=== PATIENT | female | born 1980 | race Two or more races ===

== ENCOUNTER 2018-07-28 05:45 | Day surgery (SDC) | payer OTHER ==
[2018-07-28] MEDS ORDERED: COLACE100 MG PO (11:45)
[2018-07-28] MEDS ORDERED: DICLOFENAC SODI50 MG PO (11:45)
[2018-07-28] MEDS ORDERED: NEURONTIN300 MG PO (11:45)
[2018-07-28] MEDS ORDERED: PERCOCET 5-3251 EACH PO (11:45)
== END 2018-07-28 16:10 | disposition home or self-care (01) ==
LOC: CIR.AMB 05:45
DX: K64.8 Other hemorrhoids (principal); K64.4 Residual hemorrhoidal skin tags